=== PATIENT | female | born 1980 | race Two or more races ===

== ENCOUNTER 2019-03-20 17:02 | Emergency (ER) | payer OTHER ==
[~2019-03-20] VITALS: Ht 162.6 cm; Wt 55.8 kg
[~2019-03-20 17:02] MED LIST: PHENOBARBITAL16.2 MG PO
[2019-03-20 17:15] VITALS: BP 107/75
--- NOTE | 2019-03-20 17:15 | NUR ---
ED Nurse Note: Patient walked into ED c/o 05/05 lower abdominal pain accompanied by nausea, vomiting, and diarrhea for the past 5 days, reports of having an episode of vomit 5 hours ago, patient is alert and oriented x4, patient is repeatedly asking for pain medicine, states that her past history is crohn's disease and that she is here for a flareup, reports of back tenderness. reports her stool as a liquid like consistency,
[2019-03-20] MEDS ORDERED: Ketorolac 30mg Inj IV ONE (17:30)
[2019-03-20] MEDS ORDERED: Isovue-300 100ml vial INJ PRN (17:30)
--- NOTE | 2019-03-20 17:33 | Emergency Room Report ---
History of Present Illness General Chief Complaint: Abdominal Pain Source: Patient Present Illness HPI Disclaimer: Please note that this report is being documented using [employer] technology. This can lead to erroneous entry secondary to incorrect interpretation by the dictating instrument. HPI: 38-year-old female with history of Crohn's that is managed with diet, former substance abuse currently in remission presents for evaluation of abdominal pain. Patient states she has been having 5 days of worsening periumbilical cramping, vomiting, loose stools. She describes this as a Crohn' s flare which she has had in the past. No prior history of abscess, perforation. Is not on disease altering medications for Crohn's. She denies fevers, chills, chest pain, shortness of breath, cough, dysuria, hematuria, vaginal bleeding, vaginal discharge. LMP was 2 weeks ago. PMH: Crohn's disease, former substance abuse PSH: Denies Allergies: Reglan, Compazine Social Hx: Former substance abuse, denies drug or alcohol use currently Allergies: Coded Allergies: METOCLOPRAMIDE (Verified Allergy, Unknown, 01/20/17) PROCHLORPERAZINE (Verified Allergy, Unknown, 01/20/17) Patient History Last Menstrual Period: 03/09/2019 Now: No : 1 Nursing Documentation-PMH Hx Gastrointestinal Problems: Yes - Crohn's Disease Review of Systems All Other Systems: negative except mentioned in HPI Physical Exam Vital Signs Date Time Temp Pulse Resp B/P (MAP) Pulse Ox O2 Delivery O2 Flow Rate FiO2 03/20/19 17:09 98.4 105 18 107/75 (86) 95 Room Air General: Awake and alert, no acute distress HEENT: NC/AT. EOMI. dry mucous membranes. No oral lesions or breakdown. Cardiovascular: Tachycardic. S1 and S2 normal. No murmur appreciated Resp: Normal work of breathing. No cough, wheezing or crackles appreciated Abdomen: Abdomen is soft, nondistended. Diffusely tender to palpation however tenderness is most significant in the periumbilical and right upper quadrant. Appiah sign is positive. There is no rebound tenderness. No masses. Negative for Rovsing sign. Skin: Intact. No abrasions, laceration or rash over the exposed skin. There are track lanza over the upper arms bilaterally as well as on the right side of the neck. No obvious cellulitis or abscess MSK: Normal tone and bulk. Moving all extremities. No obvious deformity. Neuro: Awake and alert. Mentating appropriately. Back/Spine: There is bilateral CVA tenderness in the flanks. Medical Decision Making Diagnostic Impression: Primary Impression: Anemia Additional Impressions: UTI (urinary tract infection) Vomiting ER Course 38-year-old female with a history of diet-controlled Crohn's disease and former substance abuse presents for evaluation of 5 days worsening abdominal pain vomiting and diarrhea. Differential includes but is not limited to Crohn's flare, gastritis, gastroenteritis, viral syndrome, hepatitis, cholecystitis, pancreatitis, urinary tract infection, pyelonephritis, STI, perforation/ abscess. The patient does appear to be in moderate distress and is tachycardic during my examination. She has tenderness just inferior to the umbilicus which may represent an abscess or possible perforation. We will start with IV fluids , antiemetics, pain medication, broad infectious and metabolic work-up and send the patient for a CT scan with IV contrast. The patient is requesting Dilaudid by name and stating that is the only pain medication that has any effect on her. She will be given Toradol and reassessed. She does not appear to be in significant distress. Laboratory Tests Test 03/20/19 17:30 White Blood Count 10.5 K/UL (4.8-10.8) Red Blood Count 3.46 M/UL (4.20-5.40) L Hemoglobin 8.8 G/DL (12.0-16.0) L Hematocrit 27.8 % (37.0-47.0) L Mean Corpuscular Volume 80 FL (80-99) Mean Corpuscular Hemoglobin 25.4 PG (27.0-31.0) L Mean Corpuscular Hemoglobin Concent 31.5 G/DL (32.0-36.0) L Red Cell Distribution Width 15.7 % (11.6-14.8) H Platelet Count 471 K/UL (150-450) H Mean Platelet Volume 5.2 FL (6.5-10.1) L Neutrophils (%) (Auto) 68.4 % (45.0-75.0) Lymphocytes (%) (Auto) 17.5 % (20.0-45.0) L Monocytes (%) (Auto) 13.2 % (1.0-10.0) H Eosinophils (%) (Auto) 0.2 % (0.0-3.0) Basophils (%) (Auto) 0.7 % (0.0-2.0) Urine Color Yellow Urine Appearance Clear Urine pH 5 (4.5-8.0) Urine Specific Osborn 1.020 (1.005-1.035) Urine Protein 2+ (NEGATIVE) H Urine Glucose (UA) Negative (NEGATIVE) Urine Ketones Negative (NEGATIVE) Urine Blood Negative (NEGATIVE) Urine Nitrite Negative (NEGATIVE) Urine Bilirubin Negative (NEGATIVE) Urine Urobilinogen Normal MG/DL (0.0-1.0) Urine Leukocyte Esterase 1+ (NEGATIVE) H Urine RBC 0-2 /HPF (0 - 2) Urine WBC 2-4 /HPF (0 - 2) Urine Squamous Epithelial Cells Few /LPF (NONE/OCC) Urine Bacteria Many /HPF (NONE) H Urine HCG, Qualitative Negative (NEGATIVE) Sodium Level 139 MMOL/L (136-145) Potassium Level 4.1 MMOL/L (3.5-5.1) Chloride Level 106 MMOL/L (98-107) Carbon Dioxide Level 25 MMOL/L (21-32) Anion Gap 8 mmol/L (5-15) Blood Urea Nitrogen 22 mg/dL (7-18) H Creatinine 0.8 MG/DL (0.55-1.30) Estimate Glomerular Filtration Rate > 60 mL/min (>60) Glucose Level 93 MG/DL (74-106) Calcium Level 9.7 MG/DL (8.5-10.1) Total Bilirubin 0.2 MG/DL (0.2-1.0) Aspartate Amino Transferase (AST) 15 U/L (15-37) Alanine Aminotransferase (ALT) 36 U/L (12-78) Alkaline Phosphatase 82 U/L (46-116) Total Protein 7.8 G/DL (6.4-8.2) Albumin 3.3 G/DL (3.4-5.0) L Globulin 4.5 g/dL Albumin/Globulin Ratio 0.7 (1.0-2.7) L Lipase 161 U/L (73-393) EKG Diagnostic Results EKG Time: 17:41 Rhythm: NSR ST Segments: no acute changes Other Impression Borderline tachycardia, normal axis, normal intervals, no acute ischemic changes. Rhythm Strip Diag. Results Rhythm Strip Time: 17:41 EP Interpretation: yes Rate: 90s Rhythm: NSR Reevaluation Time: 19:48 Last Vital Signs Date Time Temp Pulse Resp B/P (MAP) Pulse Ox O2 Delivery O2 Flow Rate FiO2 03/20/19 17:09 98.4 105 18 107/75 (86) 95 Room Air Reevaluation Impression Labs have returned largely unremarkable without significant white count, no electrolyte abnormalities, normal renal function, normal LFTs. Urinalysis shows leukocyte esterase and many bacteria suggestive of urinary tract infection. CT scan of the abdomen shows no acute pathology and no significant inflammatory changes along the GI tract, no obstruction and otherwise normal organs. They did note some intraluminal gas within the urinary bladder which may correlate with the patient's UTI she has no recent instrumentation. The patient was discharged with a prescription for Keflex, iron supplementation and Zofran. She has had no nausea, no vomiting and no diarrhea while in the emergency department. I explained her the need to follow-up with a physician for repeat lab testing and further work-up her anemia though it appears that she has had low blood counts in the past. She understands and agrees with the treatment plan was discharged home. 2010: I was called to the patient's bedside by nursing staff. After the patient was discharged she was complaining of a squeezing pain over the sternum that she now states started while she was in the CT scan. Lung sounds are clear and equal. The chest wall is nontender. She denies any lightheadedness, palpitations, numbness or tingling, return of nausea. Lung and heart sounds are unremarkable. A repeat EKG was performed showing normal sinus rhythm again , no acute ischemic changes, normal axis, normal intervals and otherwise unremarkable EKG that is largely unchanged from the previous. May be a side effect of the IV contrast and the patient was given 25 mg of oral Benadryl. 2030: I was called back into the patient's room by nursing staff stating that she is demanding morphine, Dilaudid and admission for inpatient treatment of urinary tract infection and she states she could not afford her antibiotic medications. I went to go speak with our discharge planners regarding financial assistance with prescriptions however during this time the patient left the emergency department. She did take her discharge paperwork. Disposition: HOME, SELF-CARE Condition: Improved Scripts Iron,Carbonyl/Vit C/Vit B12/Fa (IRON 100 PLUS TABLET) 1 Each Tablet 1 EACH PO DAILY, #30 TAB Prov: Leo Shaw MD 03/20/19 Cephalexin* (KEFLEX*) 500 Mg Capsule 500 MG ORAL EVERY 12 HOURS, #14 CAP 0 Refills Prov: Leo Shaw MD 03/20/19 Ondansetron Odt* (ZOFRAN ODT*) 4 Mg Tab.rapdis 4 MG BC EVERY 6 HOURS PRN for Nausea & Vomiting, #20 TAB 0 Refills Prov: Leo Shaw MD 03/20/19 Referrals: NOT CHOSEN [facility]/,REFERRING (PCP) Leo Shaw MD Mar 20, 2019 17:33
--- NOTE | 2019-03-20 18:00 | NUR ---
ED Nurse Note: IV started by Dr. Shaw on right EJ 18 gauge
[2019-03-20 18:31] LABS: APPEARANCE,URINE CLEAR; BILIRUBIN, URINE NEGATIVE (NEGATIVE); GLUCOSE, URINE (UA) NEGATIVE (NEGATIVE); KETONES,URINE NEGATIVE (NEGATIVE); LEUKOCYTE ESTERASE ,URINE 1+ (NEGATIVE); NITRITE,URINE NEGATIVE (NEGATIVE); PH,URINE 5 (4.5-8.0); PROTEIN,URINE 2+ (NEGATIVE); UROBILINOGEN,URINE NORMAL MG/DL (0.0-1.0)
[2019-03-20 18:34] LABS: COLOR,URINE YELLOW
[2019-03-20 18:42] LABS: BASOPHILS % (AUTO) 0.7 % (0.0-2.0); EOSINOPHILS % (AUTO) 0.2 % (0.0-3.0); HEMATOCRIT 27.8 % (37.0-47.0); HEMOGLOBIN 8.8 G/DL (12.0-16.0); LYMPHOCYTES % (AUTO) 17.5 % (20.0-45.0); MEAN CORPUSCULAR VOLUME 80 FL (80-99); MONOCYTES % (AUTO) 13.2 % (1.0-10.0); NEUTROPHILS % (AUTO) 68.4 % (45.0-75.0); PLATELET COUNT 471 K/UL (150-450); RED BLOOD COUNT 3.46 M/UL (4.20-5.40); RED CELL DISTRIBUTION WIDTH 15.7 % (11.6-14.8); WHITE BLOOD COUNT 10.5 K/UL (4.8-10.8)
[2019-03-20 18:43] LABS: ANION GAP 8 mmol/L (5-15); BLOOD UREA NITROGEN 22 mg/dL (7-18); CALCIUM 9.7 MG/DL (8.5-10.1); CARBON DIOXIDE 25 MMOL/L (21-32); CHLORIDE 106 MMOL/L (98-107); CREATININE 0.8 MG/DL (0.55-1.30); POTASSIUM 4.1 MMOL/L (3.5-5.1); SODIUM 139 MMOL/L (136-145)
[2019-03-20 18:47] LABS: ALANINE AMINOTRANSFERASE 36 U/L (12-78); ALBUMIN 3.3 G/DL (3.4-5.0); ALBUMIN/GLOBULIN RATIO 0.7 (1.0-2.7); ALKALINE PHOSPHATASE 82 U/L (46-116); ASPARTATE AMINO TRANSFERASE 15 U/L (15-37); BILIRUBIN,TOTAL 0.2 MG/DL (0.2-1.0)
[2019-03-20] MEDS ORDERED: Morphine Sulfate 2mg/ml Inj(IV/IM USE ONLY) IVP ONE (19:00)
[2019-03-20] MEDS ORDERED: HYDROcodone/Acetamin 7.5/325 tab ORAL ONE (19:00)
[2019-03-20] MEDS ORDERED: IRON 100 PLUS1 EACH PO (19:47)
[2019-03-20] MEDS ORDERED: CEPHALEXIN500 MG ORAL (19:47)
[2019-03-20] MEDS ORDERED: ONDANSETRON ODT4 MG BC (19:47)
--- NOTE | 2019-03-20 20:15 | NUR ---
ED Nurse Note: Patient is repeatedly asking for more morphine and dilaudid through IV. patient was given 25mg PO of benadryl due to her stating that she feels a reaction from IV contrast, patient appears of no distress, patient sating at 100% on room air, 18 respirations and blood pressure of 125/72. when given po benadryl, patient asked for it to be given through IV
--- NOTE | 2019-03-20 20:32 | NUR ---
ER DISCHARGE NOTE: Patient is cleared to be discharged per ERMD, pt is aox4, on room air, with stable vital signs. pt was given dc and prescription instructions, Patient repeatedly asked for pain meds before leaving. patient is walking out of hospital with a steady gait. Patient signed paperwork and was given prescriptions form edications. IV line and ID band removed with no complications
[2019-03-20 20:36] VITALS: BP 115/70
== END 2019-03-20 20:37 | disposition home or self-care (01) ==
LOC: EMR 17:23
DX: N39.0 Urinary tract infection, site not specified (principal); D64.9 Anemia, unspecified; K50.90 Crohn's disease, unspecified, without complications; Z88.8 Allergy status to other drugs, medicaments and biological substances; R11.10 Vomiting, unspecified
CPT/HCPCS: 36415; 74177; 80053; 81003; 81025; 83690; 85025; 87086; 93005; 96361; 96374; 96375; 96376; 99284; J1885; J2270; J2405; Q9967